=== PATIENT | female | born 1950 | race Caucasian/White ===

== ENCOUNTER 2017-11-24 08:03 | Observation (INO) | payer BC, OTHER, MEDICARE ==
[~2017-11-24] VITALS: Ht 154.9 cm; Wt 59.4 kg
[~2017-11-24 08:03] MED LIST: AMLODIPINE BESYL5 MG PO; ASPIRIN81 MG PO; ATORVASTATIN CA40 MG PO; BENZONATATE200 MG PO; COLESTIPOL HCL1 GM PO; ENALAPRIL MALEA20 MG PO; FLONASE16 GM; GABAPENTIN400 MG PO; JANUMET 50-5001 EACH PO; METOPROLOL SUC100 MG PO
[2017-11-24] MEDS ORDERED: ASPIRIN 81 MG CHEW TAB PO ONE (08:30)
[2017-11-24 09:12] LABS: BASOPHILS # (AUTO) 0.1 (0.0-0.1); BASOPHILS % 0.4 % (0.0-1.0); EOSINOPHILS # (AUTO) 0.2 (0.0-0.4); EOSINOPHILS % 1.6 % (0.0-6.0); HEMATOCRIT 41.5 % (34.2-44.1); HEMOGLOBIN 13.9 g/dL (12.0-16.0); LYMPHOCYTES # (AUTO) 1.9 (1.0-3.2); LYMPHOCYTES % 15.2 % (18.0-39.1); MEAN CORPUSCULAR HEMOGLOBIN 32.7 pg (28-32); MEAN CORPUSCULAR HGB CONC 33.5 g/dL (31-35); MEAN CORPUSCULAR VOLUME 97.6 fL (81-99); MONOCYTES # (AUTO) 0.7 (0.2-0.8); MONOCYTES % 5.5 % (4.4-11.3); NEUTROPHILS # (AUTO) 9.8 (2.1-6.9); NEUTROPHILS % 76.8 % (38.7-80.0); PLATELET COUNT 422 x10e3/uL (140-360); RED BLOOD COUNT 4.25 x10e6/uL (3.6-5.1); RED CELL DISTRIBUTION WIDTH 12.6 % (11.7-14.4)
--- NOTE | 2017-11-24 09:22 | Diagnostic Imaging Report ---
PROCEDURE: A single AP view of the chest. COMPARISON: Chest radiograph 06/07/2011. INDICATIONS: SWEATING A LOT FINDINGS: Lines/tubes: None. Lungs: Low lung volumes. There is no evidence of pneumonia or pulmonary edema. Pleura: There is no pleural effusion or pneumothorax. Heart and mediastinum: The heart and the mediastinum are unremarkable. Bones: No acute bony abnormality. S shaped scoliosis of spine. IMPRESSION: No acute cardiopulmonary disease. Dictated by: FLAKITO PETERSON M.D. on 11/24/2017 at 9:27 Electronically approved by: FLAKITO PETERSON M.D. on 11/24/2017 at 9:27
[2017-11-24 09:24] LABS: INR 1.01; PARTIAL THROMBOPLASTIN TIME 33.6 seconds (23.8-35.5); PROTHROMBIN TIME 12.5 seconds (11.9-14.5)
[2017-11-24 09:34] LABS: ALBUMIN 4.1 g/dL (3.5-5.0); ALBUMIN/GLOBULIN RATIO 0.9 (0.8-2.0); ANION GAP 21.3 mmol/L (8-16); CALCIUM 10.1 mg/dL (8.4-10.2); CREATININE, SERUM 1.55 mg/dL (0.57-1.11); POTASSIUM 3.3 mmol/L (3.5-5.1)
[2017-11-24 09:40] LABS: CREATINE KINASE MB 2.3 ng/mL (0-5.0)
[2017-11-24 10:42] LABS: BILIRUBIN,URINE NEGATIVE (NEGATIVE); CLARITY,URINE CLEAR (CLEAR); COLOR,URINE YELLOW (YELLOW); KETONES,URINE TRACE (NEGATIVE); LEUKOCYTE ESTERASE ,URINE NEGATIVE (NEGATIVE); NITRITE,URINE NEGATIVE (NEGATIVE); PROTEIN,URINE DIPSTICK TRACE (NEGATIVE); URINE UROBILINOGEN 1 mg/dL (0.2 - 1)
[2017-11-24] MEDS ORDERED: SODIUM CHLORIDE 0.9% 100 ML 100 ML IV SCH (10:45)
[2017-11-24] MEDS ORDERED: DIATRIZOATE MEGL/DIATRIZOA SOD 30 ML BTL PO ONE (10:49)
[2017-11-24 11:00] LABS: BACTERIA,URINE RARE /HPF; EPITHELIAL CELLS,URINE RARE /LPF; RBC,URINE 0-5 /HPF (0-5); WBC,URINE (MAN) 0-5 /HPF (0-5)
[2017-11-24] MEDS ORDERED: CEFTRIAXONE SOD 1 GM VIAL IV ONE (11:00)
[2017-11-24] MEDS ORDERED: SODIUM CHLORIDE 0.9% 100 ML 100 ML IV ONE (11:45)
--- NOTE | 2017-11-24 12:47 | Diagnostic Imaging Report ---
PROCEDURE: CT ABDOMEN AND PELVIS WITHOUT CONTRAST TECHNIQUE: The abdomen and pelvis were scanned utilizing a multidetector helical scanner from the diaphragm to the lesser trochanter after the oral administration of 900cc of water. No IV contrast was administered per protocol. Coronal and sagittal multiplanar reformations were obtained. COMPARISON: None. INDICATIONS: ABDOMINAL PAIN FINDINGS: ABSENCE OF INTRAVENOUS CONTRAST DECREASES SENSITIVITY FOR DETECTION OF FOCAL LESIONS AND VASCULAR PATHOLOGY. LOWER THORAX: Coronary calcifications. Mild subsegmental atelectasis. HEPATOBILIARY: Status post cholecystectomy with mild intrahepatic and CBD dilatation, likely post surgical. No focal hepatic lesions. SPLEEN: No splenomegaly. PANCREAS: No focal masses or ductal dilatation. ADRENALS: No adrenal nodules. KIDNEYS/URETERS: No hydronephrosis, stones, or solid mass lesions. PELVIC ORGANS/BLADDER: Medina catheter is in a decompressed bladder. PERITONEUM / RETROPERITONEUM: No free air or fluid. LYMPH NODES: No lymphadenopathy. VESSELS: Atherosclerotic calcifications of the abdominal aorta and branch vessels. GI TRACT: Diffuse colonic wall thickening. Normal appendix. Mild circumferential wall thickening in the distal stomach. BONES AND SOFT TISSUES: No acute abnormalities. Levoconvex scoliosis of the lumbar spine with severe multilevel degenerative changes. IMPRESSION: Diffuse colonic wall thickening, consistent with colitis, which may be infectious or inflammatory in etiology. Mild circumferential wall thickening in the distal stomach, which may reflect gastritis or underdistention. Dictated by: FLAKITO PETERSON M.D. on 11/24/2017 at 12:53 Electronically approved by: FLAKITO PETERSON M.D. on 11/24/2017 at 12:53
[2017-11-24] MEDS ORDERED: METRONIDAZOLE 500MG/NS 100ML 100 ML IV STA (13:02)
[2017-11-24] MEDS ORDERED: ONDANSETRON HCL INJ 2 MG/ML VIAL IV PRN (13:30)
[2017-11-24] MEDS ORDERED: HYDROCHLOROTHIA25 MG (14:00)
[2017-11-24] MEDS ORDERED: CALCIUM 500+D1 EACH (14:00)
[2017-11-24] MEDS ORDERED: CENTRUM SILVER1 EAC4 (14:00)
[2017-11-24] MEDS ORDERED: RAMIPRIL10 MG (14:00)
[2017-11-24] MEDS ORDERED: B-121000 MCG (14:00)
[2017-11-24] MEDS ORDERED: LANTUS 3ML100 UNITS/ SC (14:00)
[2017-11-24] MEDS ORDERED: vascepa PO (14:00)
[2017-11-24] MEDS ORDERED: NOVOLOG100 UNIT/1 SC ×3 (14:00)
[2017-11-24] MEDS: PIPER-TAZ 3.375 GM 50 ML IV SCH ×2 (14:17→21:37)
[2017-11-24 15:40] VITALS: BP 120/64
[2017-11-24 15:44] VITALS: BP 120/64
[2017-11-24 15:50] VITALS: BP 122/58
[2017-11-24 16:02] VITALS: BP 122/58
[2017-11-24] MEDS: METRONIDAZOLE 500MG/NS 100ML 100 ML IV SCH ×2 (16:59→20:43)
[2017-11-24] MEDS ORDERED: ZADITOR5 ML OP (17:32)
[2017-11-24] MEDS ORDERED: NOVOLOG100 UNIT/1 SQ (17:32)
[2017-11-24] MEDS ORDERED: CENTRUM SILVER1 EAC4 PO (17:32)
[2017-11-24] MEDS ORDERED: VITAMIN D1000 UNI1 PO (17:32)
[2017-11-24] MEDS ORDERED: JANUMET 50-5001 EACH PO (17:32)
[2017-11-24] MEDS ORDERED: METRONIDAZOLE 500MG/NS 100ML 100 ML IV SCH (18:00)
[2017-11-24 20:00] VITALS: BP 137/80
[2017-11-25 00:18] VITALS: BP 132/59
[2017-11-25] MEDS: METRONIDAZOLE 500MG/NS 100ML 100 ML IV SCH ×3 (04:23→15:25)
[2017-11-25] MEDS ORDERED: POTASSIUM CHLORIDE 20 MEQ TAB CR PO ONE (04:45)
[2017-11-25] MEDS: PIPER-TAZ 3.375 GM 50 ML IV SCH ×2 (05:41→14:32)
[2017-11-25 05:46] VITALS: BP 120/57
[2017-11-25 08:39] VITALS: BP 115/59
[2017-11-25] MEDS ORDERED: HYDROCHLOROTHIAZIDE 25 MG TAB PO SCH (09:00)
[2017-11-25] MEDS ORDERED: ASPIRIN 81 MG CHEW TAB PO SCH (09:00)
[2017-11-25] MEDS ORDERED: COLESTIPOL HCL 1 G TAB PO SCH (09:00)
[2017-11-25] MEDS ORDERED: METOPROLOL SUCCINATE 50 MG TAB XL PO SCH (09:00)
[2017-11-25] MEDS ORDERED: CHOLECALCIFEROL 1,000 UNIT TAB PO SCH (09:00)
[2017-11-25] MEDS ORDERED: AMLODIPINE BESYLATE 5 MG TAB PO SCH (09:00)
[2017-11-25] MEDS: GABAPENTIN 400 MG CAP PO SCH ×2 (09:12→14:32)
[2017-11-25] MEDS ORDERED: INSULIN LISPRO 100 UNIT/1 ML 3ML VIAL SQ SCH ×2 (11:30→16:30)
[2017-11-25 12:14] VITALS: BP 131/57
[2017-11-25] MEDS ORDERED: DEXTROSE 50% SYRINGE 50 ML IV PRN (14:45)
[2017-11-25 17:19] VITALS: BP 122/58
[2017-11-25] MEDS ORDERED: ATORVASTATIN 40 MG TAB PO SCH (21:00)
[2017-11-25] MEDS ORDERED: INSULIN DETEMIR 100 UNIT/ML PEN SQ SCH (21:00)
[2017-11-26] MEDS ORDERED: INSULIN LISPRO 100 UNIT/1 ML 3ML VIAL SQ SCH (11:30)
== END 2017-11-25 19:05 | disposition home or self-care (01) ==
LOC: ER 08:03 → ERHOLD 13:20 → IMCU 15:11
PROVIDERS: ADMIT Internal Medicine; ATTEND Internal Medicine
DX: K51.50 Left sided colitis without complications (principal); E11.22 Type 2 diabetes mellitus with diabetic chronic kidney disease; N18.3 Chronic kidney disease, stage 3 (moderate); Z82.49 Family history of ischemic heart disease and other diseases of the circulatory system; K57.30 Diverticulosis of large intestine without perforation or abscess without bleeding
CPT/HCPCS: 36415 ×2; 51700; 71045; 74176; 80053; 81001; 82550; 82553; 82948 ×2; 83605; 83690; 84484; 85025; 85610; 85730; 87040; 93005; 99285; G0378 ×2; J0696; J2405; J2543 ×2